=== PATIENT | male | born 1990 | race Two or more races ===

== ENCOUNTER 2016-11-04 21:58 | Emergency (ER) | payer MEDICAID ==
[~2016-11-04] VITALS: Ht 188 cm; Wt 135.5 kg
[2016-11-04 22:00] VITALS: BP 129/82
[2016-11-04] MEDS ORDERED: ONDANSETRON ODT 4 MG ONE (22:58)
[2016-11-04] MEDS ORDERED: ONDANSETRON ODT 4 MG PO ONE (23:00)
== END 2016-11-04 23:50 | disposition home or self-care (01) ==
LOC: ED 23:01
DX: J03.00 Acute streptococcal tonsillitis, unspecified (principal); J45.909 Unspecified asthma, uncomplicated
CPT/HCPCS: 99283; Q0162

== ENCOUNTER 2016-12-04 11:02 | Emergency (ER) | payer MEDICAID ==
[~2016-12-04] VITALS: Ht 188 cm; Wt 140.0 kg
[2016-12-04 11:08] VITALS: BP 134/82
[2016-12-04] MEDS ORDERED: DEXAMETHASONE 4 MG/ML, 1ML ONE (11:56)
[2016-12-04] MEDS ORDERED: DEXAMETHASONE 4 MG/ML, 1ML PO ONE (12:00)
== END 2016-12-04 13:49 | disposition home or self-care (01) ==
LOC: ED 12:45
DX: K02.9 Dental caries, unspecified (principal); J02.9 Acute pharyngitis, unspecified; J45.909 Unspecified asthma, uncomplicated
CPT/HCPCS: 36415; 86308; 99283; J1100